=== PATIENT | female | born 1995 | race Caucasian/White ===

== ENCOUNTER 2019-12-31 20:59 | Emergency (ER) | payer MEDICAID, OTHER, SELFPAY ==
[~2019-12-31] VITALS: Ht 167.6 cm; Wt 102.1 kg
--- NOTE | 2019-12-31 21:17 | NUR ---
TASK RN: PT AMBULATED STEADILY TO ROOM FROM TRIAGE WO ASSISTANCE. NAD NOTED.
[2019-12-31] MEDS ORDERED: SODIUM CHLORIDE FLUSH 10ML SYR IVF ONE (21:30)
--- NOTE | 2019-12-31 21:30 | NUR ---
FIRST CONTACT WITH PATIENT: HARRISON CAO RN AND MD CHATA IN ROOM FOR PATIENT CARE AND EVAL. PATIENT IS COMING IN FOR "MY STOMACH IS SWELLED UP, I'M HAVING REALLY BAD HEARTBURN, AND I'M PUKING UP BLOOD". PT DESCRIBES A SMALL EMESIS OF COFFEE GROUND APPEARANCE, FOLLOWED BY BRIGHT RED BLOOD OFF AND ON FOR 4-5 DAYS. PT REPORTS DRINKING HALF PINT DAILY AND METH USE. C/O N/V AT THIS TIME, ERP IN ROOM TO COMPLETE OCCULT BLOOD STOOL CHECK. ALL MONITORING IN PLACE, NSR ON MONITOR. PO CAO PLACED PIV. CALL LIGHT IN REACH.
[2019-12-31] MEDS ORDERED: MAALOX/HYOSCYAMINE/LIDOCAINE 45 ML BTL ONE (21:38)
[2019-12-31] MEDS ORDERED: ONDANSETRON 2MG/ML, 2ML ONE (21:38)
[2019-12-31] MEDS ORDERED: PANTOPRAZOLE 40 MG IV ONE (21:40)
--- NOTE | 2019-12-31 21:52 | NUR ---
PATIENT MEDICATED WITH IV MEDICATIONS, WILL GIVE GI COCKTAIL WHEN NAUSEA IS UNDER CONTROL.
[2019-12-31 21:55] LABS: BASOPHILS # (AUTO) 0.15 x10^3/uL (0-0.1); BASOPHILS % (AUTO) 2 % (0-1); EOSINOPHILS # (AUTO) 0.07 x10^3/uL (0-0.4); EOSINOPHILS % (AUTO) 1 % (1-7); LYMPHOCYTES # (AUTO) 2.95 x10^3/uL (1-3.4); LYMPHOCYTES % (AUTO) 35 % (22-44); MD NO; MEAN CORPUSCULAR HEMOGLOBIN 31.2 pg (27.0-34.8); MEAN CORPUSCULAR HGB CONC 33.7 g/dL (32.4-35.8); MEAN CORPUSCULAR VOLUME 92.7 fL (80-100); MEAN PLATELET VOLUME 8.4 fL (7.4-10.4); MONOCYTES # (AUTO) 0.58 x10^3/uL (0.2-0.8); MONOCYTES % (AUTO) 7 % (2-9); NEUTROPHILS # (AUTO) 4.69 x10^3/uL (1.8-6.8); NEUTROPHILS % (AUTO) 56 % (42-75); PLATELET COUNT 324 x10^3/uL (130-400); RED BLOOD COUNT 4.55 x10^6/uL (3.82-5.3); RED CELL DISTRIBUTION WIDTH 12.9 % (9.6-15.2)
[2019-12-31] MEDS ORDERED: MAALOX/HYOSCYAMINE/LIDOCAINE 45 ML BTL PO ONE (22:00)
[2019-12-31] MEDS ORDERED: PANTOPRAZOLE 40 MG IV IV ONE (22:00)
[2019-12-31] MEDS ORDERED: ONDANSETRON 2MG/ML, 2ML IVPush ONE (22:00)
--- NOTE | 2019-12-31 22:02 | NUR ---
PATIENT DENIES NAUSEA AT THIS TIME, GIVEN GI COCKTAIL. TOELRATED WELL
[2019-12-31 22:08] LABS: ALBUMIN 3.6 g/dL (3.4-5.0); ANION GAP 6 mmol/L (5-15); CALCIUM 8.8 mg/dL (8.5-10.1); CHLORIDE 106 mmol/L (98-107); CREATININE 1.01 mg/dL (0.55-1.02)
[2019-12-31 22:12] LABS: ALKALINE PHOSPHATASE 97 U/L (45-117); BILIRUBIN,TOTAL 0.7 mg/dL (0.2-1.0); TOTAL PROTEIN 8.1 g/dL (6.4-8.2)
[2019-12-31 22:14] LABS: ALANINE AMINOTRANSFERASE 109 U/L (12-78)
[2019-12-31 22:19] LABS: PROTHROMBIN TIME 10.6 Seconds (9.6-11.5)
[2019-12-31 22:27] VITALS: BP 113/57
--- NOTE | 2019-12-31 22:45 | NUR ---
Patient given discharge instructions and they have confirmed that they understand the instructions. Patient ambulatory with steady gait.
== END 2019-12-31 22:47 | disposition home or self-care (01) ==
LOC: ED 21:24
DX: K29.21 Alcoholic gastritis with bleeding (principal); R94.5 Abnormal results of liver function studies; R73.09 Other abnormal glucose; F17.200 Nicotine dependence, unspecified, uncomplicated; Z90.49 Acquired absence of other specified parts of digestive tract
CPT/HCPCS: 36415; 71045; 80053; 80307; 83690; 84703; 85025; 85610; 85730; 86850; 86900; 96374; 96375; 99284; C9113; J2405